=== PATIENT | female | born 1955 ===

== ENCOUNTER 2017-05-23 19:12 | Emergency (ER) | payer SELFPAY ==
--- NOTE | 2017-05-23 20:39 | EDPHY ---
H & P Time Seen by Provider: 05/23/17 19:41 HPI/ROS: CHIEF COMPLAINT: Memory issues, resolved HISTORY OF PRESENT ILLNESS: Patient is visiting from [facility], and daughters translating. Patient did not sustain any trauma. At 4:00 p.m. she suddenly had trouble with her memory and started with repetitive questioning. The patient's family says she would ask the same thing 10 or 20 times in a row and her only other symptom is a little bit of nausea. She did not have any trouble with distant memory but it trouble remembering where she was and why she was there and what they were doing. No trouble with vision, speech, balance , strength. No sensation or visual symptoms, no facial asymmetry. Symptoms just started after eating lunch, the patient said she felt a little bit drugged. Symptoms lasted about an hour or an hour and and half, and now are completely resolved. REVIEW OF SYSTEMS: Eye: no change in vision ENT: no sore throat Cardiac: no chest pain or syncope Pulmonary: no cough or SOB Abdomen: no vomiting, diarrhea, abdominal pain. She has some nausea earlier but not now Musculoskeletal: no back pain Skin: no rash Neuro: no headache or neck pain Constitutional: no fever : no urinary symptoms A comprehensive 10 point review of systems is otherwise negative aside from elements mentioned in the history of present illness. PAST MEDICAL HISTORY: Uterine cancer, hysterectomy Social history: Visiting from [facility], no known drug ingestion today. General Appearance: Alert and conversant, cooperative. Eyes: No scleral icterus. Extraocular motion intact. No nystagmus. ENT, Mouth: Normal mucous membranes. Respiratory: Normal respiratory effort, breath sounds equal, lungs are clear to auscultation. Cardiovascular: Regular rate and rhythm. No carotid bruit and no murmur. Gastrointestinal: Abdomen is soft and non tender. Neurological: Alert and oriented x3 now. Speech is fluent per family. Face symmetric, normal movement and sensation in all extremities. No clonus, toes downgoing, [id number] normal bilaterally, no pronator drift. Not ataxic. Skin: Warm and dry, no rashes. Musculoskeletal: No peripheral edema and no joint swelling. Psychiatric: Not agitated. Emergency Department course/MDM: Patient presents with symptoms in the absence of head trauma most likely would be consistent with transient global amnesia. She does not have any focal deficits to suggest ischemic stroke. Plan for EKG, head CT, labs. Discharge with follow-up back in [facility] if normal. 2049: CT per Dr. Mendez reported as normal except for a single hyperdense area recommends CTA for confirmation. 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 No bleed. No tumor. Results discussed with family and patient at this time. She tolerated the IV contrast just fine. She did get premedicated because of remote history of redness and itching after IV contrast but a subsequent IV contrast study prior to tonight that had no reaction. I think it is reasonable that she returns home to [facility] tomorrow and follow up with her doctor there with copies of all the imaging and labs done here. Possibility of partial or complex seizure was also considered, although I still think transient global amnesia is the most likely reason for her symptoms. Smoking Status: Never smoked Constitutional: Initial Vital Signs Temperature (C) 36.7 C 05/23/17 19:18 Heart Rate 73 05/23/17 19:18 Respiratory Rate 16 05/23/17 19:18 Blood Pressure 151/95 H 05/23/17 19:18 O2 Sat (%) 97 05/23/17 19:18 O2 Delivery Mode Room Air Medical Decision Making - Diagnostics EKG Interpretation: 12-lead EKG interpreted by me; official reading is in trace master. My interpretation is sinus rhythm, normal intervals. Imaging Results: Imaging Impressions Head CT 05/23/17 20:14 Impression: Vague hyperdense lesion of left basal ganglia. Additional imaging would be useful, preferably CT arteriography of the head. I discussed results with Dr. Mp Tomlinson. Head CTA 05/23/17 20:53 Impression: Left frontal venous malformation. I telephoned results to Dr. Mp Tomlinson at [address] Angiography of the Neck (With Contrast) Clinical Indications: Transient global amnesia Technique: During IV administration of 75 mL of Isovue-370 intravenously, helical multidetector data acquisition was obtained from the upper thorax cephalad through the skull base. The thinly collimated data were manipulated in multiple projections on the 3D computer workstation by the radiologist. Dose reduction techniques were utilized. Findings: Carotid bifurcations are widely patent. Both vertebral arteries are open. No evidence of occlusion, hemodynamically significant stenosis or ulceration. Both lobes of the thyroid gland have numerous large heterogeneous masses. Impression: 1. Multinodular goiter. 2. Normal arteries of the neck. I telephoned results to Dr. Mp Tomlinson at 2305 hours. Note: All stenoses are calculated using NASCET Criteria. Neck CTA 05/23/17 20:53 Impression: Left frontal venous malformation. I telephoned results to Dr. Mp Tomlinson at [address] Angiography of the Neck (With Contrast) Clinical Indications: Transient global amnesia Technique: During IV administration of 75 mL of Isovue-370 intravenously, helical multidetector data acquisition was obtained from the upper thorax cephalad through the skull base. The thinly collimated data were manipulated in multiple projections on the 3D computer workstation by the radiologist. Dose reduction techniques were utilized. Findings: Carotid bifurcations are widely patent. Both vertebral arteries are open. No evidence of occlusion, hemodynamically significant stenosis or ulceration. Both lobes of the thyroid gland have numerous large heterogeneous masses. Impression: 1. Multinodular goiter. 2. Normal arteries of the neck. I telephoned results to Dr. Mp Tomlinson at 2305 hours. Note: All stenoses are calculated using NASCET Criteria. Differential Diagnosis: Differential considered including but not limited to seizure, transient global amnesia, drugs, metabolic. - Data Points Laboratory Results: Laboratory Results 05/23/17 20:37 05/23/17 20:37 05/23/17 05/23/17 20:37 20:37 WBC 6.82 10^3/uL 10^3/uL (3.80-9.50) RBC 4.61 10^6/uL 10^6/uL (4.18-5.33) Hgb 14.3 g/dL g/dL (12.6-16.3) Hct 41.5 % % (38.0-47.0) MCV 90.0 fL fL (81.5-99.8) MCH 31.0 pg pg (27.9-34.1) MCHC 34.5 g/dL g/dL (32.4-36.7) RDW 13.0 % % (11.5-15.2) Plt Count 259 10^3/uL 10^3/uL (150-400) MPV 11.2 fL fL (8.7-11.7) Neut % (Auto) 67.9 % % (39.3-74.2) Lymph % (Auto) 23.9 % % (15.0-45.0) [place] % (Auto) 6.3 % % (4.5-13.0) Eos % (Auto) 1.2 % % (0.6-7.6) Baso % (Auto) 0.4 % % (0.3-1.7) Nucleat RBC Rel Count 0.0 % % (0.0-0.2) Absolute Neuts (auto) 4.63 10^3/uL 10^3/uL (1.70-6.50) Absolute Lymphs (auto) 1.63 10^3/uL 10^3/uL (1.00-3.00) Absolute Monos (auto) 0.43 10^3/uL 10^3/uL (0.30-0.80) Absolute Eos (auto) 0.08 10^3/uL 10^3/uL (0.03-0.40) Absolute Basos (auto) 0.03 10^3/uL 10^3/uL (0.02-0.10) Absolute Nucleated RBC 0.00 10^3/uL 10^3/uL (0-0.01) Immature Gran % 0.3 % % (0.0-1.1) Immature Gran # 0.02 10^3/uL 10^3/uL (0.00-0.10) Sodium 143 mEq/L mEq/L (134-144) Potassium 4.3 mEq/L mEq/L (3.5-5.2) Chloride 106 mEq/L mEq/L (97-110) Carbon Dioxide 25 mEq/l mEq/l (22-31) Anion Gap 12 mEq/L mEq/L (8-16) BUN 18 mg/dL mg/dL (7-23) Creatinine 0.8 mg/dL mg/dL (0.6-1.0) Estimated GFR > 60 Glucose 110 mg/dL H mg/dL (70-100) Calcium 10.3 mg/dL mg/dL (8.5-10.4) Medications Given: Discontinued Medications Diphenhydramine HCl (Benadryl Injection) 50 mg IVP EDNOW ONE Stop: 05/23/17 21:00 Last Admin: 05/23/17 21:13 Dose: 50 mg Methylprednisolone Sodium Succinate (Solu-Medrol) 125 mg IVP EDNOW ONE Stop: 05/23/17 21:00 Last Admin: 05/23/17 21:13 Dose: 125 mg Departure - Departure Disposition: Home, Routine, Self-Care Clinical Impression: Transient global amnesia Condition: Good Instructions: Transient Global Amnesia (ED) Additional Instructions: bring labs, CD with CT scans on it, to your doctor in [place] also possible is some type of partial or complex seizure. Referrals: NONE *PRIMARY CARE P,. [Primary Care Provider] - As per Instructions (your primary care doctor in [place])
[2017-05-23 20:45] LABS: % IMMATURE GRANULYOCYTES 0.3 % (0.0-1.1); ABSOLUTE IMMATURE GRANULOCYTES 0.02 10^3/uL (0.00-0.10); ADD DIFF? NO; ADD MORPH? NO; ADD SCAN? NO; ATYPICAL LYMPHOCYTE FLAG 10 (0-99); FRAGMENT RBC FLAG 0 (0-99); HEMATOCRIT 41.5 % (38.0-47.0); HEMOGLOBIN 14.3 g/dL (12.6-16.3); LEFT SHIFT FLG 0 (0-99); LIPEMIA HEMOLYSIS FLAG 90 (0-99); MEAN CELL HEMOGLOBIN CONCENTR. 34.5 g/dL (32.4-36.7); MEAN PLATELET VOLUME 11.2 fL (8.7-11.7); PLATELET CLUMPS FLAG 10 (0-99); PLATELET COUNT 259 10^3/uL (150-400); RED BLOOD CELL COUNT 4.61 10^6/uL (4.18-5.33)
--- NOTE | 2017-05-23 20:55 | CPEKG ---
Heart Rate: 55 RR Interval: 1091 P-R Interval: 188 QRSD Interval: 76 QT Interval: 456 QTC Interval: 437 P [place]: 39 QRS [place]: 15 T Wave [place]: 44 EKG Severity - NORMAL ECG - EKG Impression: SINUS RHYTHM Electronically Signed By: Mp Tomlinson 24-May-2017 08:55:03
[2017-05-23] MEDS ORDERED: methylPREDNISolone SOD SUCC 125 MG/2 ML VIAL IVP ONE (20:59)
[2017-05-23 21:01] LABS: ANION GAP 12 mEq/L (8-16); CALCIUM 10.3 mg/dL (8.5-10.4); CARBON DIOXIDE 25 mEq/l (22-31); CHLORIDE 106 mEq/L (97-110); CREATININE 0.8 mg/dL (0.6-1.0); GLOMERULAR FILTRATION RATE > 60; GLUCOSE 110 mg/dL (70-100); POTASSIUM 4.3 mEq/L (3.5-5.2); SODIUM 143 mEq/L (134-144)
[2017-05-23] MEDS ORDERED: IOPAMIDOL (ISOVUE 370) 100 ML BTL IV ONE (21:18)
[2017-05-23 23:16] VITALS: BP 126/88; PULSE 76; RESP 20; TEMP 98.6; O2SAT 98
== END 2017-05-23 23:29 | disposition home or self-care (01) ==
DX: G45.4 Transient global amnesia (principal); Z85.42 Personal history of malignant neoplasm of other parts of uterus
CPT/HCPCS: 96374; J1200; Q9967